=== PATIENT | female | born 1965 | race Caucasian/White ===

== ENCOUNTER → 2019-11-27 13:26 | Outpatient (BNVA) | payer BC, SELFPAY | PROVIDERS: Family Provider Family Medicine; PCP Family Medicine; Visit Provider Nurse Practitioner | DX: M47.22 Other spondylosis with radiculopathy, cervical region (principal); M25.511 Pain in right shoulder; M17.0 Bilateral primary osteoarthritis of knee; M25.551 Pain in right hip; M25.552 Pain in left hip; M54.5 Low back pain; Z79.891 Long term (current) use of opiate analgesic | CPT/HCPCS: 99213; 99214 ==

== ENCOUNTER → 2020-04-01 14:08 | Outpatient (BNVA) | payer BC, SELFPAY | PROVIDERS: Family Provider Family Medicine; PCP Family Medicine; Visit Provider Anesthesiology | DX: G89.29 Other chronic pain (principal); M47.22 Other spondylosis with radiculopathy, cervical region; M54.5 Low back pain; M89.8X1 Other specified disorders of bone, shoulder; M17.0 Bilateral primary osteoarthritis of knee; Z79.891 Long term (current) use of opiate analgesic | CPT/HCPCS: 99214 ==

== ENCOUNTER → 2020-05-09 13:17 | Outpatient (BNVA) | payer BC, SELFPAY | PROVIDERS: Family Provider Family Medicine; PCP Family Medicine; Visit Provider Specialist | DX: M16.11 Unilateral primary osteoarthritis, right hip (principal) | CPT/HCPCS: 73502 ==

== ENCOUNTER 2020-05-17 15:02 | Outpatient (CLI) | payer BC, SELFPAY ==
--- NOTE | 2020-05-17 15:07 | MR_ITS ---
WS: [id number] MRI RIGHT hip without contrast. COMPARISON: RIGHT hip pain. No trauma. COMPARISON: Radiographs 05/09/2020. Multiplanar, multisequence imaging is performed of the pelvis and hips. Attention to the RIGHT hip. No marrow edema or fracture. No significant joint effusion. There is slightly more fluid in the RIGHT hip joint than the LEFT. No trochanteric bursitis. There is increased T2 signal in the lateral RIGHT obturator externa small muscle. Abnormal signal measures 3.5 x 1.3 cm and extends just inferior to t he femoral head. No muscle atrophy at this time. No definite labral tears are identified on this exam. There is no free fluid in the pelvis. Soft tiss ues are symmetric bilaterally. MR/MR hip RT wo con* [id number] IMPRESSION: 1. Partially torn RIGHT obturator internus externus muscle. 2. Small and probably reactive RIGHT hip joint effusion.
== END 2020-05-17 15:03 | disposition home or self-care (01) ==
LOC: RADWPI 15:05
PROVIDERS: Family Provider Family Medicine; PCP Family Medicine; Visit Provider Specialist
DX: S76.011A Strain of muscle, fascia and tendon of right hip, initial encounter (principal); M25.451 Effusion, right hip; X58.XXXA Exposure to other specified factors, initial encounter
CPT/HCPCS: 73721

== ENCOUNTER → 2020-06-03 11:41 | Outpatient (BNVA) | payer BC, SELFPAY | PROVIDERS: Family Provider Family Medicine; PCP Family Medicine; Visit Provider Anesthesiology | DX: G89.29 Other chronic pain (principal); M47.22 Other spondylosis with radiculopathy, cervical region; M89.8X1 Other specified disorders of bone, shoulder; M54.5 Low back pain; S76.011A Strain of muscle, fascia and tendon of right hip, initial encounter; M17.0 Bilateral primary osteoarthritis of knee; X58.XXXA Exposure to other specified factors, initial encounter; Z79.891 Long term (current) use of opiate analgesic | CPT/HCPCS: 99214 ==

== ENCOUNTER → 2020-06-08 13:25 | Outpatient (BNVA) | payer BC, SELFPAY | PROVIDERS: Family Provider Family Medicine; PCP Family Medicine; Referring Provider Specialist; Visit Provider Podiatrist Foot & Ankle Surgery | DX: M79.672 Pain in left foot (principal); M79.671 Pain in right foot; M20.12 Hallux valgus (acquired), left foot; M20.11 Hallux valgus (acquired), right foot; M21.612 Bunion of left foot; M21.611 Bunion of right foot; M13.872 Other specified arthritis, left ankle and foot; M13.871 Other specified arthritis, right ankle and foot | CPT/HCPCS: 73630 ==

== ENCOUNTER → 2020-07-04 14:55 | Outpatient (BNVA) | payer BC, SELFPAY | PROVIDERS: Family Provider Family Medicine; PCP Family Medicine; Visit Provider Specialist | DX: S76.011A Strain of muscle, fascia and tendon of right hip, initial encounter (principal); M79.671 Pain in right foot; M79.672 Pain in left foot; Z96.653 Presence of artificial knee joint, bilateral; M21.612 Bunion of left foot; M21.611 Bunion of right foot; M19.072 Primary osteoarthritis, left ankle and foot; M19.071 Primary osteoarthritis, right ankle and foot; M20.12 Hallux valgus (acquired), left foot; M20.11 Hallux valgus (acquired), right foot; X58.XXXA Exposure to other specified factors, initial encounter | CPT/HCPCS: 73560; 73565 ==

== ENCOUNTER → 2020-08-04 12:26 | Outpatient (BNVA) | payer BC, SELFPAY | PROVIDERS: Family Provider Family Medicine; PCP Family Medicine; Visit Provider Anesthesiology | DX: G89.29 Other chronic pain (principal); M47.22 Other spondylosis with radiculopathy, cervical region; M89.8X1 Other specified disorders of bone, shoulder; M54.5 Low back pain; M17.0 Bilateral primary osteoarthritis of knee; Z79.891 Long term (current) use of opiate analgesic | CPT/HCPCS: 99214 ==

== ENCOUNTER → 2020-08-10 15:44 | Outpatient (BNVA) | payer BC, SELFPAY | PROVIDERS: Family Provider Family Medicine; PCP Family Medicine; Referring Provider Nurse Practitioner; Visit Provider Specialist | DX: S49.92XA Unspecified injury of left shoulder and upper arm, initial encounter (principal); X58.XXXA Exposure to other specified factors, initial encounter | CPT/HCPCS: 73030 ==

== ENCOUNTER → 2020-09-27 13:18 | Outpatient (BNVA) | payer BC, SELFPAY | PROVIDERS: Family Provider Family Medicine; PCP Family Medicine; Visit Provider Anesthesiology | DX: M54.2 Cervicalgia (principal); M17.0 Bilateral primary osteoarthritis of knee; M47.22 Other spondylosis with radiculopathy, cervical region; Z79.891 Long term (current) use of opiate analgesic; M89.8X1 Other specified disorders of bone, shoulder; G89.29 Other chronic pain | CPT/HCPCS: 99214 ==

== ENCOUNTER → 2020-11-29 13:29 | Outpatient (BNVA) | payer BC, SELFPAY | PROVIDERS: Family Provider Family Medicine; PCP Family Medicine; Visit Provider Anesthesiology | DX: G89.29 Other chronic pain (principal); M25.511 Pain in right shoulder; M47.22 Other spondylosis with radiculopathy, cervical region; M54.5 Low back pain; M17.0 Bilateral primary osteoarthritis of knee; Z79.891 Long term (current) use of opiate analgesic | CPT/HCPCS: 99214 ==

== ENCOUNTER → 2021-01-24 13:51 | Outpatient (BNVA) | payer BC, SELFPAY | PROVIDERS: Family Provider Family Medicine; PCP Family Medicine; Visit Provider Nurse Practitioner | DX: G89.29 Other chronic pain (principal); M25.511 Pain in right shoulder; M89.8X1 Other specified disorders of bone, shoulder; M47.22 Other spondylosis with radiculopathy, cervical region; M54.5 Low back pain; M17.0 Bilateral primary osteoarthritis of knee; S76.011A Strain of muscle, fascia and tendon of right hip, initial encounter; X58.XXXA Exposure to other specified factors, initial encounter; Z79.891 Long term (current) use of opiate analgesic | CPT/HCPCS: 99213; 99214 ==

== ENCOUNTER → 2021-03-21 13:30 | Outpatient (BNVA) | payer BC, SELFPAY | PROVIDERS: Family Provider Family Medicine; PCP Family Medicine; Visit Provider Anesthesiology | DX: G89.29 Other chronic pain (principal); M47.22 Other spondylosis with radiculopathy, cervical region; M89.8X1 Other specified disorders of bone, shoulder; M54.5 Low back pain; M17.0 Bilateral primary osteoarthritis of knee; Z79.891 Long term (current) use of opiate analgesic | CPT/HCPCS: 99213 ==

== ENCOUNTER → 2021-05-23 12:41 | Outpatient (BNVA) | payer BC, SELFPAY | PROVIDERS: Family Provider Family Medicine; PCP Family Medicine; Visit Provider Anesthesiology | DX: G89.29 Other chronic pain (principal); M47.22 Other spondylosis with radiculopathy, cervical region; M17.0 Bilateral primary osteoarthritis of knee; M54.5 Low back pain; M89.8X1 Other specified disorders of bone, shoulder; Z79.891 Long term (current) use of opiate analgesic | CPT/HCPCS: 99214 ==

== ENCOUNTER 2021-06-15 20:00 | Outpatient (CLI) | payer BC, SELFPAY | END 2021-06-15 20:01 | disposition home or self-care (01) | LOC: SLEEP 06-16 08:21 | PROVIDERS: Family Provider Family Medicine; PCP Family Medicine; Visit Provider Family Medicine | DX: G47.10 Hypersomnia, unspecified (principal); R06.83 Snoring; R53.83 Other fatigue; G47.33 Obstructive sleep apnea (adult) (pediatric) | CPT/HCPCS: 95810 ==

== ENCOUNTER → 2021-06-23 13:16 | Outpatient (BNVA) | payer BC, SELFPAY | PROVIDERS: Family Provider Family Medicine; PCP Family Medicine; Visit Provider Surgery | DX: Z20.822 Contact with and (suspected) exposure to COVID-19 (principal); Z23 Encounter for immunization | CPT/HCPCS: 87635 ==

== ENCOUNTER 2021-06-28 06:01 | Day surgery (SDC) | payer BC, SELFPAY ==
[2021-06-21 12:45] VITALS: BMI 33.2
[2021-06-28 06:17] VITALS: BP 126/76; PULSE 97; RESP 18; TEMP 36.4; O2SAT 94
--- NOTE | 2021-06-28 06:25 | W.PM.OPSFHP ---
Same Day Surgery H&P Indication for Procedure/HPI DATE OF PROCEDURE: June 28, 2021 CHIEF COMPLAINT/INDICATIONFOR SURGICAL PROCEDURE: Abnormal discharge PREOP DIAGNOSIS: Rectal discharge and history of colon polyp PLANNED PROCEDRUE: Operation Date: 06/28/21 07:00 Proposed Procedures p Colonoscopy 43971 z86.010(Not Applicable) - Rylan Olson MD This is a pleasant 55 years old female patient referred to my practice with history of abnormal rectal discharge being mucousy and nonbloody. She reports last colonoscopy was done 5 years ago and polyps were found. He also reports family history of colon cancer per her father in his 70s. Interim history 06/28/2021 Patient comes today for diagnostic colonoscopy ROS All systems have been reviewed negative except as per the above or per problem LIST Medications/Allergies* Home Medications Medication Instructions Recorded Confirmed Type fexofenadine 180 mg tablet 180 mg PO DAILY PRN 11/26/19 06/28/21 History furosemide 40 mg tablet 40 mg PO .QD PRN tab 11/26/19 06/28/21 History potassium chloride 10 mEq 10 meq PO DAILY 11/26/19 06/28/21 History tablet,extended release promethazine 25 mg tablet 25 mg PO .QD PRN tab 11/26/19 06/28/21 History fluoxetine [Prozac] 25 mg PO DAILY 06/21/21 06/28/21 History Allergies/Adverse Reactions Allergy/AdvReac Type Severity Reaction Status Date / Time baclofen AdvReac nausea/twitch Verified 06/28/21 06:29 in hands Pertinent History/Comorbid Conditions* Medical History (Updated 05/11/21 @ 14:36 by Rylan Olson MD) Bilateral primary osteoarthritis of knee Cervical radiculopathy due to degenerative joint disease of spine Chronic pain of scapula Encounter for long-term opiate analgesic use Opioid contract exists Surgical History (Updated 11/27/19 @ 14:23 by GRACIA Swenson) History of left knee replacement History of total right knee replacement 04/07/19 w/Dr Mcclendon Hx of carpal tunnel repair Right 11/2008 Hx of dilation and curettage 1988 Hx of hysterectomy Hx of shoulder surgery right side with Dr. Mcclendon 11/22/17 Social History Smoking and tobacco status: never smoked Second hand smoke exposure: No Alcohol intake: never Lives independently: Yes History of recent travel: No Pertinent Exam Findings alert (Patient seems to be anxious), oriented x 3, clear to auscultation bilaterally, regular rate & rhythm and procedure specific exam findings (Abdominal examination nontender nondistended soft) Recommendations Surgery/Procedure today (Colonoscopy with possible biopsy) Other Plans: Plan of care; After thorough history and physical examination and reviewing the chart, plan to perform diagnostic colonoscopy. I discussed with the patient in details the risks,benefits,alternatives and indications.The risk of aspiration, bleeding, soft tissue injury, perforation of the colon and other potential concomitant complications were explained to the patient in details,also the potential need for Laproscoy/Laparotomy to repair any related complications including but not limited to colectomy and or Closotomy.The patient understood this well and did agree to proceed. Rationale was carefully and clearly discussed with the patient.Appropriate informed consent have been reviewed and signed All questions have been answered and all concerns have been addressed to patient's satisfaction. Verbal and written Instructions were given to the patient for colonoscopy prep Coding Level of Care Code Acute Chemical Research Worker for Ahsan Mendenhall
--- NOTE | 2021-06-28 06:54 | ANES.PREANE2 ---
Pre-Anesthetic Assessment Pre-Anesthetic Assessment: Height/Weight: Height 1.83 m Weight 111.13 kg Temp Pulse Resp BP Pulse Ox 97.6 F 97 18 126/76 94 06/28/21 06:17 06/28/21 06:17 06/28/21 06:17 06/28/21 06:17 06/28/21 06:17 Preop Diagnosis: Rectal discharge and history of colon polyp Proposed Procedure: Operation Date: 06/28/21 07:00 Proposed Procedures p Colonoscopy 74438 z86.010(Not Applicable) - Rylan Olson MD Was Beta Cristo taken within 24 hours: N/A Was Clonidine taken within 24 hours: N/A Last intake: Intake Last Liquid Date 06/27/21 Last Liquid Time 19:00 Last Solid Date 06/27/21 Last Solid Time 17:00 Social: Social History: No alcohol and No tobacco Comment: Opiod depenence Exam: Pre-Anes Outpt Exam: alert, oriented x 3, clear to auscultation bilaterally and regular rate & rhythm Airway: Submandibular: WNL Cervical ROM: WNL MP: 2 Dentition: Full History/ROS: No significant history except as noted and No significant complaints Pulmonary: Pulmonary: None reported CV/HEM: CV/HEM: None reported : : None reported Hepatic: Hepatic: None reported GI: GI: None reported Metabolic: Metabolic: None reported Musc/skel: Musc/skel: Fibromyalgia, Lower Back Pain and OA/DJD Neuropsych: Neuropsych: Anxiety Anesthetic Plan: ASA status: 2 Anesthesia: MAC Risk of > 500 ml blood loss (7ml/kg in children): No PFSH Anesthesia PFSH: Medical History Bilateral primary osteoarthritis of knee Cervical radiculopathy due to degenerative joint disease of spine Chronic pain of scapula Encounter for long-term opiate analgesic use Opioid contract exists Surgical History History of left knee replacement History of total right knee replacement 04/07/19 w/Dr Mcclendon Hx of carpal tunnel repair Right 11/2008 Hx of dilation and curettage 1988 Hx of hysterectomy Hx of shoulder surgery right side with Dr. Mcclendon 11/22/17 Social History (Updated 05/23/21 @ 13:00 by Juju Merino LPN) Smoking and tobacco status: never smoked Second hand smoke exposure: No Alcohol intake: never Lives independently: Yes History of recent travel: No Data Anesthesia Cardiac Studies: No Data to Display
[2021-06-28] MEDS: sodium chloride 0.9% 1,000 ML 30 ML IV (07:04)
[2021-06-28 07:24] VITALS: BP 128/76; PULSE 81; RESP 16; TEMP 36.7; O2SAT 99
[2021-06-28 07:27] VITALS: BP 133/73; PULSE 75; RESP 18; O2SAT 97
--- NOTE | 2021-06-28 13:54 | ANE.PACU2 ---
Inpatient post-anesthesia follow up: Airway intact: Yes Vital signs: Temperature 98.1 F Pulse Rate 75 Respiratory Rate 18 Blood Pressure 133/73 Pulse Oximetry 97 Oxygen Delivery Me thod Room Air Oxygen Flow Rate 3 Fraction of Inspir ed Oxygen Nausea and vomiting: No Pain level: 1 Mental status: Baseline
== END 2021-06-28 07:40 | disposition home or self-care (01) ==
PROVIDERS: PCP Family Medicine; Visit Provider Surgery
PROC: 0DJD8ZZ Inspection of Lower Intestinal Tract, Via Natural or Artificial Opening Endoscopic (ICD-10-PCS; CPT 45378; principal; 2021-06-28 07:00)
DX: K62.89 Other specified diseases of anus and rectum (principal); Z86.010 Personal history of colon polyps; M17.0 Bilateral primary osteoarthritis of knee; Z79.891 Long term (current) use of opiate analgesic; G89.29 Other chronic pain; M79.7 Fibromyalgia; F41.9 Anxiety disorder, unspecified
CPT/HCPCS: 45330; J2704; J7030

== ENCOUNTER → 2021-07-20 09:14 | Outpatient (BNVA) | payer BC, SELFPAY | PROVIDERS: PCP Family Medicine; Referring Provider Anesthesiology; Visit Provider Specialist | DX: G47.419 Narcolepsy without cataplexy (principal); M89.8X1 Other specified disorders of bone, shoulder; G89.29 Other chronic pain; M40.204 Unspecified kyphosis, thoracic region; V89.2XXS Person injured in unspecified motor-vehicle accident, traffic, sequela; G62.9 Polyneuropathy, unspecified | CPT/HCPCS: 99204 ==

== ENCOUNTER 2021-07-24 09:46 | Outpatient (CLI) | payer OTHER, SELFPAY ==
--- NOTE | 2021-07-24 09:53 | XR_ITS ---
WS: [id number] XR lumbar spine 2-3V* [id number] REASON FOR EXAM: BACK PAIN FINDINGS: No significant compression deformity or other focal vertebral body abnormality. Narrowing of the intervertebral disc spaces L1-S1, most significant at L4-L5 and L5-S1. No significant listhesis There is been moderate to significant narrowing of the disc spaces compared to the previous examinati on of 02/11/2008. XR/XR lumbar spine 2-3V* [id number] IMPRESSION: Changes of degenerative spondylosis which have developed since the previous exa mination of 02/11/2008.
== END 2021-07-24 09:47 | disposition home or self-care (01) ==
LOC: RAD 09:50
PROVIDERS: PCP Family Medicine; Visit Provider Dermatology
DX: Z02.71 Encounter for disability determination (principal); M54.9 Dorsalgia, unspecified
CPT/HCPCS: 72100

== ENCOUNTER → 2021-07-25 11:12 | Outpatient (BNVA) | payer BC, SELFPAY | PROVIDERS: PCP Family Medicine; Visit Provider Nurse Practitioner | DX: G89.29 Other chronic pain (principal); M54.50 Low back pain, unspecified; M47.22 Other spondylosis with radiculopathy, cervical region; M17.0 Bilateral primary osteoarthritis of knee; M89.8X1 Other specified disorders of bone, shoulder; G62.9 Polyneuropathy, unspecified; Z79.891 Long term (current) use of opiate analgesic | CPT/HCPCS: 99213 ==

== ENCOUNTER → 2021-07-27 08:50 | Outpatient (BNVA) | payer BC, SELFPAY | PROVIDERS: PCP Family Medicine; Referring Provider Specialist; Visit Provider Specialist | DX: G62.89 Other specified polyneuropathies (principal) | CPT/HCPCS: 95909 ==

== ENCOUNTER → 2021-08-21 08:16 | Outpatient (BNVA) | payer BC, SELFPAY | PROVIDERS: PCP Family Medicine; Referring Provider Family Medicine Adult Medicine; Visit Provider Specialist | DX: M25.551 Pain in right hip (principal) | CPT/HCPCS: 73502 ==

== ENCOUNTER 2021-08-31 10:19 | Outpatient (CLI) | payer BC, SELFPAY ==
[2021-08-31 11:12] LABS: C Reactive Protein 2.3 mg/L (0.0-4.9); Thyroid Stimulating Hormone 1.35 uIU/mL (0.27-4.20)
[2021-08-31 11:27] LABS: Folate Level 7.5 ng/mL (4.8-37.3)
[2021-08-31 11:47] LABS: Vitamin B12 528 pg/mL (232-1245)
[2021-09-01 15:39] LABS: Erythrocyte Sedimentation Rate 17 mm/hr (0-15)
[2021-09-05 18:58] LABS: Methylmalonic Acid 161 nmol/L (87-318)
== END 2021-08-31 10:20 | disposition home or self-care (01) ==
LOC: LAB 10:21
PROVIDERS: PCP Family Medicine; Visit Provider Specialist
DX: R20.0 Anesthesia of skin (principal); R20.2 Paresthesia of skin
CPT/HCPCS: 36415; 82607; 82746; 83921; 84443; 85651; 86140; 86334; 86431

== ENCOUNTER → 2021-09-21 14:12 | Outpatient (BNVA) | payer BC, SELFPAY | PROVIDERS: PCP Family Medicine; Visit Provider Anesthesiology | DX: G89.29 Other chronic pain (principal); M54.50 Low back pain, unspecified; M47.22 Other spondylosis with radiculopathy, cervical region; M17.0 Bilateral primary osteoarthritis of knee; M16.11 Unilateral primary osteoarthritis, right hip; M89.8X1 Other specified disorders of bone, shoulder; Z79.891 Long term (current) use of opiate analgesic | CPT/HCPCS: 99214 ==

== ENCOUNTER 2022-04-26 07:28 | Outpatient (CLI) | payer BC, SELFPAY ==
--- NOTE | 2022-04-26 07:49 | MM_ITS ---
WS: [id number] BILATERAL SCREENING DIGITAL BREAST TOMOSYNTHESIS MAMMOGRAM WITH CAD HISTORY: SCREENING COMPARISON: None available. Bilateral CC and MLO views with tomosynthesis and synthetic mammography submitted. Computer aided det ection analyzed. Breast composition: There are scattered areas of fibroglandular density. No suspicious masses, microc alcifications or architectural distortion. MM/[place] [id number] IMPRESSION: BI-RADS: 1-Negative FOLLOW UP: 1 Year Follow-up
== END 2022-04-26 07:29 | disposition home or self-care (01) ==
PROVIDERS: PCP Family Medicine; Visit Provider Family Medicine
DX: Z12.31 Encounter for screening mammogram for malignant neoplasm of breast (principal)
CPT/HCPCS: 77063; 77067

== ENCOUNTER → 2022-05-23 17:07 | Outpatient (BNVA) | payer BC, SELFPAY | PROVIDERS: PCP Family Medicine; Visit Provider Emergency Medicine | DX: M25.572 Pain in left ankle and joints of left foot (principal) | CPT/HCPCS: 73610 ==

== ENCOUNTER 2022-08-30 06:01 | Day surgery (SDC) | payer BC, SELFPAY ==
[2022-08-28 12:35] VITALS: BMI 33.9
[2022-08-30 06:21] VITALS: BP 128/82; PULSE 86; RESP 20; TEMP 36.1; O2SAT 94
[2022-08-30] MEDS: sodium chloride 0.9% 1,000 ML 30 ML IV (06:28)
--- NOTE | 2022-08-30 06:31 | W.PM.OPSFHP ---
Same Day Surgery H&P Indication for Procedure/HPI DATE OF PROCEDURE: August 30, 2022 CHIEF COMPLAINT/INDICATIONFOR SURGICAL PROCEDURE: I am here for colonoscopy PREOP DIAGNOSIS: History of colon polyps PLANNED PROCEDURE: Operation Date: 08/30/22 07:30 Proposed Procedures p Colonoscopy 42993,Z86.010,Z80.0(Not Applicable) - Rylan Olson MD 06/27/2022 This is a pleasant 56 years old female patient presents to my practice today with history of colon polyps and an attempt of colonoscopy was done back in June 2021 but unfortunately the patient's prep was suboptimal and subsequently she comes today for arrangement to have a colonoscopy, she does report that she has family history of colon cancer with her father had a colon cancer around the age of 70 and he at age of 72. Patient denies any bleeding per rectum and she reports that she had precancerous polyps removed before few years. 08/30/2022 Patient comes today for surveillance colonoscopy ROS All systems have been reviewed negative except as for the above or per problem list. Medications/Allergies* Home Medications Medication Instructions Recorded Confirmed Type fexofenadine 180 mg tablet 180 mg PO DAILY PRN Allergy 11/26/19 08/28/22 History (Rosenda Allergy) Symptoms furosemide 40 mg tablet (Lasix) 40 mg PO .QD PRN Blood Pressure 11/26/19 08/28/22 History promethazine 25 mg tablet 25 mg PO .QD PRN Nausea 11/26/19 08/28/22 History fluoxetine 20 mg capsule (Prozac) 20 mg PO DAILY 07/25/21 08/28/22 History oxycodone 20 mg tablet 20 mg PO TID PRN pain 01/04/22 08/28/22 History potassium chloride 10 mEq 10 meq PO DAILY PRN Weight Gain 01/04/22 08/28/22 History tablet,extended release Allergies/Adverse Reactions Allergy/AdvReac Type Severity Reaction Status Date / Time baclofen AdvReac nausea/twitch Verified 08/30/22 06:31 in hands Current Medications: Generic Name Dose Route Start Last Admin Trade Name Freq PRN Reason Stop Dose Admin Sodium Chloride 1,000 mls @ 30 mls/hr 08/30/22 06:15 08/30/22 06:28 Sodium Chloride 0.9% IV 08/31/22 06:14 30 mls/hr .Q24H FRANCIS Administration Pertinent History/Comorbid Conditions* Medical History (Updated 06/27/22 @ 08:04 by Rylan Olson MD) Acute right hip pain Bilateral primary osteoarthritis of knee Cervical radiculopathy due to degenerative joint disease of spine Chronic pain of scapula Encounter for long-term opiate analgesic use Opioid contract exists Surgical History (Updated 08/08/21 @ 09:36 by Caleb Beavers MD) History of colonoscopy with polypectomy History of left knee replacement History of total right knee replacement 04/07/19 w/Dr Mcclendon Hx of carpal tunnel repair Right 11/2008 Hx of dilation and curettage 1988 Hx of hysterectomy Hx of shoulder surgery right side with Dr. Mcclendon 11/22/17 Social History Smoking and tobacco status: never smoked Second hand smoke exposure: No Alcohol intake: never Lives independently: Yes History of recent travel: No Pertinent Exam Findings alert, oriented x 3, clear to auscultation bilaterally, regular rate & rhythm and procedure specific exam findings (Abdominal exam nontender nondistended soft) Recommendations Surgery/Procedure today (Colonoscopy with possible biopsy) Coding Level of Care Code Acute Building And Construction Manager for Ahsan Mendenhall
--- NOTE | 2022-08-30 06:35 | P.ANESASSM_ITS ---
Pre-Anesthetic Assessment Height/Weight: Height 1.83 m Weight 113.398 kg Temp Pulse Resp BP Pulse Ox O2 Del Method 97 F L 86 20 H 128/82 94 08/30/22 06:21 08/30/22 06:21 08/30/22 06:21 08/30/22 06:21 08/30/22 06:21 08/30/22 06:21 Preop Diagnosis: History of colon polyps Operation Date: 08/30/22 07:30 Proposed Procedures p Colonoscopy 19401,Z86.010,Z80.0(Not Applicable) - Rylan Olson MD Familial anesthetic complications: None Was Beta Cristo taken within 24 hours: N/A Was Clonidine taken within 24 hours: N/A Last intake: Intake Last Liquid Date 08/29/22 Last Liquid Time 21:00 Last Solid Date 08/28/22 Last Solid Time 22:00 Social No alcohol and No tobacco Exam alert, oriented x 3, clear to auscultation bilaterally and regular rate & rhythm Airway Submandibular: within normal limits Cervical ROM: within normal limits Mallampati: Class II Dentition: chipped (Back right) History/ROS No significant history except as noted and No significant complaints Pulmonary Sleep Apnea (Mild, no CPAP) Allergies CV/HEM Hypertension Kidney labs showed low kidney function. Will discuss labs today with PCP Hepatic None reported GI None reported Metabolic Hyperlipidemia [facility] [place] Fibromyalgia, Lower Back Pain and Osteoarthritis/DJD Neuropsych Neuropathy RLS Anesthetic Plan ASA status: 2 Anesthesia: Anesthesia Evaluation, General and MAC Risk of > 500 ml blood loss (7ml/kg in children): No Medications/Allergies Home Medications Medication Instructions Recorded Confirmed Last Taken Type fexofenadine 180 mg tablet 180 mg PO DAILY PRN Allergy 11/26/19 08/28/22 08/29/22 History (Rosenda Allergy) Symptoms furosemide 40 mg tablet (Lasix) 40 mg PO .QD PRN Blood Pressure 11/26/19 08/28/22 08/29/22 History promethazine 25 mg tablet 25 mg PO .QD PRN Nausea 11/26/19 08/28/22 08/29/22 History fluoxetine 20 mg capsule (Prozac) 20 mg PO DAILY 07/25/21 08/28/22 08/29/22 History meloxicam 15 mg tablet 15 mg PO DAILY #30 tabs 08/21/21 08/28/2222 Rx cyclobenzaprine 10 mg tablet 10 mg PO QID muscle spasm #120 tabs 11/21/21 08/28/22 08/30/22 05:30 Rx oxycodone 20 mg tablet 20 mg PO TID PRN pain 01/04/22 08/28/22 08/30/22 05:30 History potassium chloride 10 mEq 10 meq PO DAILY PRN Weight Gain 01/04/22 08/28/22 08/29/22 History tablet,extended release Allergies Allergy/AdvReac Type Severity Reaction Status Date / Time baclofen AdvReac nausea/twitch Verified 08/30/22 06:31 in hands Current Medications Generic Name Dose Route Start Last Admin Trade Name Freq PRN Reason Stop Dose Admin Sodium Chloride 1,000 mls @ 30 mls/hr 08/30/22 06:15 08/30/22 06:28 Sodium Chloride 0.9% IV 08/31/22 06:14 30 mls/hr .Q24H FRANCIS Administration PFSH Anesthesia Medical History Acute right hip pain Bilateral primary osteoarthritis of knee Cervical radiculopathy due to degenerative joint disease of spine Chronic pain of scapula Encounter for long-term opiate analgesic use Opioid contract exists Surgical History History of colonoscopy with polypectomy History of left knee replacement History of total right knee replacement 04/07/19 w/Dr Mcclendon Hx of carpal tunnel repair Right 11/2008 Hx of dilation and curettage 1988 Hx of hysterectomy Hx of shoulder surgery right side with Dr. Mcclendon 11/22/17 Social History Smoking and tobacco status: never smoked Second hand smoke exposure: No Alcohol intake: never Lives independently: Yes History of recent travel: No Data Anesthesia Cardiac Studies: No Data to Display
[2022-08-30 07:39] VITALS: BP 114/63; PULSE 92; RESP 14; TEMP 36.4; O2SAT 96
[2022-08-30 07:49] VITALS: BP 143/85; PULSE 76; RESP 18; O2SAT 97
--- NOTE | 2022-08-30 15:17 | ANE.PACU2 ---
Inpatient post-anesthesia follow up: Airway intact: Yes Vital signs: Temperature 97.5 F Pulse Rate 76 Respiratory Rate 18 Blood Pressure 143/85 Pulse Oximetry 97 Oxygen Delivery Me thod Nasal Cannula Oxygen Flow Rate 4 Fraction of Inspir ed Oxygen Hydration adequate: Yes Nausea and vomiting: No Pain level: 1 Mental status: Baseline
== END 2022-08-30 08:23 | disposition home or self-care (01) ==
PROVIDERS: PCP Family Medicine; Visit Provider Surgery
PROC: 0DJD8ZZ Inspection of Lower Intestinal Tract, Via Natural or Artificial Opening Endoscopic (ICD-10-PCS; CPT 45378; principal; 2022-08-30 07:30)
DX: Z12.11 Encounter for screening for malignant neoplasm of colon (principal); Z86.010 Personal history of colon polyps; Z80.0 Family history of malignant neoplasm of digestive organs; D12.3 Benign neoplasm of transverse colon; G47.30 Sleep apnea, unspecified; I10 Essential (primary) hypertension; E78.5 Hyperlipidemia, unspecified; M79.7 Fibromyalgia; Z79.891 Long term (current) use of opiate analgesic
CPT/HCPCS: 45385; J2704; J7030

== ENCOUNTER 2023-05-11 13:36 | Outpatient (CLI) | payer OTHER, SELFPAY ==
--- NOTE | 2023-05-11 14:25 | XRR_ITS ---
PROCEDURE INFORMATION: Exam: XR Right Foot Exam date and time: 05/11/2023 2:27 PM Age: 57 years old Clinical indication: Pain; Foot; Right; Additional info: Foot injury TECHNIQUE: Imaging protocol: Radiologic exam of the right foot. Views: 3 or more views. COMPARISON: [place] [id number] ORTH 06/08/2020 1:30 PM FINDINGS: Bones/joints: Incomplete thin oblique linear lucency at the lateral proximal 5th metatarsal shaft cortex on the oblique view. Hallux valgus alignment with osseous hypertrophy of the 1st metatarsal head and mild degenerative changes at the 1st MTP joint and 1st metatarsal-sesamoid. Joint spacing and alignment are otherwise anatomic. Small plantar calcaneal enthesophyte. Soft tissues: Unremarkable. XR/XR foot RT min 3V* [id number] IMPRESSION: 1. Evidence of right proximal 5th metatarsal stress fracture. 2. Hallux valgus alignment with bunion formation and mild associated degenerative changes.
== END 2023-05-11 13:37 | disposition home or self-care (01) ==
LOC: LAB 13:37
PROVIDERS: PCP Family Medicine; Visit Provider Registered Nurse Neonatal Intensive Care
DX: M84.374A Stress fracture, right foot, initial encounter for fracture (principal); M20.11 Hallux valgus (acquired), right foot; M21.611 Bunion of right foot
CPT/HCPCS: 73630

== ENCOUNTER 2023-05-14 14:38 | Outpatient (CLI) | payer OTHER, SELFPAY | END 2023-05-14 14:39 | disposition home or self-care (01) | LOC: SPT 14:39 | PROVIDERS: PCP Family Medicine; Visit Provider Podiatrist Foot & Ankle Surgery | DX: Z46.89 Encounter for fitting and adjustment of other specified devices (principal); S92.353D Displaced fracture of fifth metatarsal bone, unspecified foot, subsequent encounter for fracture with routine healing; X58.XXXD Exposure to other specified factors, subsequent encounter | CPT/HCPCS: 97760; L4361 ==

== ENCOUNTER 2023-05-18 17:58 | Emergency (ER) | payer OTHER, SELFPAY ==
--- NOTE | 2023-05-18 18:23 | XRR_ITS ---
PROCEDURE INFORMATION: Exam: XR Right Foot Exam date and time: 05/18/2023 6:41 PM Age: 57 years old Clinical indication: Pain; Foot; Left TECHNIQUE: Imaging protocol: Radiologic exam of the right foot. Views: 3 or more views. COMPARISON: CR XR foot RT min 3V* [id number] 05/11/2023 2:27 PM FINDINGS: Bones/joints: There is a hairline fracture through the proximal shaft of the 5th metatarsal that is more apparent on the current study but otherwise unchanged. No malalignment or displacement. Moderate degenerative changes 1st MTP in joint with accompanying hallux-valgus deformity unchanged. Incidental accessory ossicles adjacent to the distal metatarsal heads unchanged. Soft tissues: Normal. XR/XR foot RT min 3V* [id number] IMPRESSION: Acute nondisplaced hairline fracture proximal shaft 5th metatarsal that is slightly more apparent on the current study.
[2023-05-18 18:37] VITALS: BP 161/88; PULSE 84; RESP 16; TEMP 36.7; O2SAT 99
--- NOTE | 2023-05-18 20:43 | W.ED.EXTPRO ---
HPI - Extremity Problem General: Chief complaint: Extremity Injury, Lower Stated complaint: right foot pain Time Seen by Provider: 05/18/23 20:03 History of Present Illness: Patient is a 57-year-old female that presents to the emergency department with complaints of right foot pain. Patient originally injured her foot approximately 1 month ago but did not follow-up for evaluation until about a week ago. She was seen and diagnosed with a 5th metatarsal fracture while at urgent care. She followed up with orthopedic surgeon?Dr. Goins on Saturday. She was placed in a walking boot. [place] when she felt a sudden change in her foot and intense pain. She has been unable to ambulate since. Patient was not wearing her walking boot when this occurred Associated symptoms: Deny chest pain, fever(s) or rash Review of Systems General: Reports: 10 or more systems reviewed and unremarkable except in HPI and below Const: Denies: fever(s), chills, change in appetite, change in weight, fatigue or malaise Eyes: Denies: change in vision, eye discomfort, eye discharge or eye redness ENMT: Denies: throat pain, enlarged tonsils, odynophagia, hoarseness, ear or mastoid pain, ear discharge, change in hearing, tinnitus, nasal discharge, nasal congestion, post nasal drip or sinus pain Card: Denies: chest pain, palpitations, irregular heart rhythm, edema, dyspnea on exertion, orthopnea or leg pain with exertion Resp: Denies: dyspnea, productive cough, non-productive cough, wheezing, stridor or chest congestion GI: Denies: abdominal pain, nausea, vomiting, dysphagia, diarrhea, constipation, bloating, GI cramping or hematochezia : Denies: flank pain, difficulty voiding, dysuria, urinary frequency, urinary urgency, urinary hesitancy, oliguria or hematuria Musc: Denies: neck pain, back pain, extremity pain, joint pain, joint swelling, joint redness, joint warmth or muscle weakness Skin/Breast: Denies: rash, pruritus, erythema, photosensitivity or new lesions Neuro: Denies: headache(s), numbness in extremities, weakness in extremities, sensory changes, lack of coordination, difficulty walking, frequent falls, dizziness, confusion, Slurred speech present, difficulty communicating thoughts, seizure-like activity or involuntary movements Endo: Denies: polyuria, polydipsia or tired all the time Umang/Lymph: Denies: easy bruising or easy bleeding PFSH ED PFSH: Medical History Acute right hip pain Bilateral primary osteoarthritis of knee Cervical radiculopathy due to degenerative joint disease of spine Chronic pain of scapula Encounter for long-term opiate analgesic use Opioid contract exists Surgical History History of colonoscopy with polypectomy History of left knee replacement History of total right knee replacement 04/07/19 w/Dr Mcclendon Hx of carpal tunnel repair Right 11/2008 Hx of dilation and curettage 1988 Hx of hysterectomy Hx of shoulder surgery right side with Dr. Mcclendon 11/22/17 Social History Smoking and tobacco status: never smoked Second hand smoke exposure: No Alcohol intake: never Substance/Drug Use: never Lives independently: Yes Physical Exam Const: COMMON NORMALS: no acute distress, patient oriented x3 and alert GENERAL APPEARANCE: cooperative ORIENTATION/CONSCIOUSNESS: Yes awake, Yes oriented to person, Yes oriented to place and Yes oriented to time HENMT: COMMON NORMALS: normocephalic and atraumatic HEAD & SCALP: normocephalic and atraumatic FACE & SINUS: normal facial exam MOUTH: Normal oral and palatal mucosa present THROAT: posterior oropharynx normal Eye: COMMON NORMALS: Equal, round and reactive pupils present, EOMs intact bilaterally, conjunctivae normal and no scleral icterus GENERAL EYE: appearance normal, both eyes and all related structures ALIGNMENT: Yes alignment normal PERIORBITAL: periorbital findings normal CONJUNCTIVA: Yes conjunctivae normal PUPIL: Yes Equal, round and reactive pupils present Neck/C-Spine: COMMON NORMALS: full ROM GENERAL: Yes normal visual inspection Lymph: LYMPHATIC: no lymphadenopathy noted Chest: COMMONS NORMALS: normal inspection of the chest Breast/axilla inspection: Yes no chest deformity, asymmetry, normal contours, no nodules, masses, tenderness Resp: COMMON NORMALS: normal respiratory effort, No retractions, No use of accessory muscles and clear to auscultation bilaterally EFFORT & INSPECTION: Yes able to speak in complete sentences and Yes symmetric chest movement AUSCULTATION: clear to auscultation bilaterally Cardio: COMMON NORMALS: regular rate, regular rhythm and Peripheral pulses 2+ throughout RATE: regular rate RHYTHM: regular rhythm PERIPHERAL PULSES: Peripheral pulses 2+ throughout GI: COMMON NORMALS: Normal to inspection, nondistended, normoactive bowel sounds present, Soft to palpation, non-tender and No hepatosplenomegaly present INSPECTION: Yes normal to inspection AUSCULTATION: Yes normoactive bowel sounds PALPATION: Yes Soft to palpation and Yes No hepatosplenomegaly present RECTAL EXAM: deferred Extremity: COMMON NORMALS: normal to inspection GENERAL: Yes normal exam except as noted OTHER: Right lower extremity: Skin is clean dry and intact Patient is able to flex and extend the hip and knee Patient is able to dorsiflex plantarflex the foot Patient is able to dorsiflex great toe Sensation intact to light touch at medial, lateral, dorsal, plantar surface of the foot and first webspace DP pulses palpable and cap refill less than 3 seconds Neuro: COMMON NORMALS: patient oriented x3 SENSORIUM/ORIENTATION: Yes alert, Yes oriented to person, Yes oriented to place and Yes oriented to time CRANIAL NERVES: Yes CN normal except as noted Psych: COMMON NORMALS: mental status grossly normal, Normal thought process present, cooperative, activity/motor behavior normal, denies homicidal ideation and denies suicidal ideation THOUGHT PROCESS: Normal thought process present Skin: COMMON NORMALS: no rashes or lesions noted, no wounds and turgor normal GENERAL SKIN EXAM: no rashes or lesions noted and turgor normal Course Vital Signs: Vital signs: Vital Signs Temperature 98.0 F 05/18/23 18:37 Pulse Rate 84 05/18/23 18:37 Respiratory Rate 16 05/18/23 18:37 Blood Pressure 161/88 05/18/23 18:37 Pulse Oximetry 99 05/18/23 18:37 MDM - Extremity (Nontraumatic) Medical Decision Making Patient was evaluated today for increased foot pain. I obtained an XR of the right foot which reveals a5th metatarsal fracture that remains nondisplaced but more clearly defined. I have advised the patient to continue wearing her walking boot and I am providing her with crutches and crutch training. Patient is declining any pain medication. Patient is to call her orthopedic surgeon on Saturday and update him. She may return to the emergency department for new concerning or worsening symptom Lab Data Radiology Impressions Foot X-Ray 05/18/23 18:23 IMPRESSION: Acute nondisplaced hairline fracture proximal shaft 5th metatarsal that is slightly more apparent on the current study. Discharge Plan Discharge Patient Disposition: Home Clinical Impression: Metatarsal bone fracture Condition: Stable Prescriptions: No Action meloxicam 15 mg tablet 15 mg PO DAILY Qty: 30 2RF Hold Instructions: Resume on 09/06/22. Rx Instructions: TAKE 1 TABLET BY MOUTH DAILY cyclobenzaprine 10 mg tablet 10 mg PO QID Qty: 120 1RF furosemide [Lasix] 40 mg tablet 40 mg PO .QD PRN (Reason: Blood Pressure) fexofenadine [Rosenda Allergy] 180 mg tablet 180 mg PO DAILY PRN (Reason: Allergy Symptoms) promethazine 25 mg tablet 25 mg PO .QD PRN (Reason: Nausea) potassium chloride 10 mEq tablet extended release 10 meq PO DAILY PRN (Reason: Weight Gain) Patient Comments: Only takes with lasix as needed losartan 25 mg tablet 25 mg PO DAILY oxycodone 5 mg tablet 5 mg PO QID (DME) Cam boot to the right See Rx Instructions .Route .MEDSUPPLY Qty: 1 0RF Rx Instructions: As directed Discharge Orders: Discharge ED (Routine); Ordered 05/18/23 Ordered By: Teresita Contreras Referrals: Alexandria Casanova MD [Primary Care Provider] - Discharge Diet: Advance as tolerated Discharge Activity: Resume usual activity Patient Instructions: Pain Management Activity Restrictions/Additional Instructions: Weightbearing as tolerated. Continue to wear your walking boot when out of bed Use your crutches for comfort Please return to the emergency department for new concerning or worsening symptoms. Please call Dr. Goins to update him on your worsening pain Coding Level of Care Code ED Property Custodian for Ahsan Mendenhall
== END 2023-05-18 21:10 | disposition home or self-care (01) ==
PROVIDERS: Emergency Provider Nurse Practitioner; PCP Family Medicine
DX: S92.354A Nondisplaced fracture of fifth metatarsal bone, right foot, initial encounter for closed fracture (principal); X58.XXXA Exposure to other specified factors, initial encounter; Y92.828 Other wilderness area as the place of occurrence of the external cause
CPT/HCPCS: 73630; 99283; E0114

== ENCOUNTER 2023-05-24 09:23 | Day surgery (SDC) | payer OTHER, SELFPAY ==
[2023-05-24] VITALS (7 sets, daily range): BP systolic 123–141; BP diastolic 72–82; PULSE 75–89; RESP 16–18; TEMP 36.1–36.2; O2SAT 96–99
--- NOTE | 2023-05-24 | XR_ITS ---
WS: [id number] Right foot, C-arm fluoroscopy views, 05/24/2023 Clinical Data: Right fifth metatarsal fusion Comparison: Right foot, 05/17/2023 Findings: Dr. Goins inserted a orthopedic pin to reduce the right fifth metatarsal fracture. XR/XR foot RT 2V [id number] Impression: Internal fixation of right fifth metatarsal fracture.
[2023-05-24] MEDS: CELEcoxib 200 mg Capsule 400 MG PO (09:57)
[2023-05-24] MEDS: gabapentin 300 mg Capsule PO (09:57)
[2023-05-24] MEDS: sodium chloride 0.9% 1,000 ML 30 ML IV (09:58)
[2023-05-24] MEDS: ondansetron 2 mg/ML SDV 2 mL 4 MG IVP (10:00)
[2023-05-24] MEDS: diphenhydrAMINE 50 mg/mL SDV 1mL 12.5 MG IVP (10:00)
[2023-05-24] MEDS: scopolamine 1.5 Patch 1 PATCH TRANSDERMA (10:01)
--- NOTE | 2023-05-24 13:30 | W.PM.OPSUD ---
Surgery/Procedure H&P Update DATE OF PROCEDURE: May 24, 2023 DATE H&P PERFORMED: 05/21/23 CHANGES TO PREVIOUS DOCUMENTATION: none PREOP DIAGNOSIS: Right fifth metatarsal fracture PLANNED PROCEDURE: Operation Date: 05/24/23 11:00 Proposed Procedures p ?Open reduction internal fixation right fifth metatarsal fracture 77086,S92.351A(Right) - Jose Carlos Goins DPM
[2023-05-24] MEDS: ceFAZolin 2,000 MG in sodium chloride 0.9% (plus) 50 ML 100 MG IV (13:37)
[2023-05-24] MEDS: lidocaine 2% INJ 20 mL INJECTION (14:05)
[2023-05-24] MEDS: BUPivacaine 0.5% INJ 30 mL INJECTION (14:08)
--- NOTE | 2023-05-24 14:24 | P.OP_ITS ---
Operative Report Date of procedure: May 24, 2023 Pre-op diagnosis: Preop Diagnosis Right fifth metatarsal fracture Post-op diagnosis: Right fifth metatarsal fracture Procedure done: Open reduction and internal right fifth metatarsal fracture. CPT code 89961 Implants: Glenwood Rondon precision screw 5.5 mm x 48 mm 4-0 nylon Specimens removed/disposition: None Pathology: None Surgeon: Jose Carlos Goins D.P.M. Stamping Machine Operator: Cassie Mantilla Estimated blood loss: Less than 5 13 IV fluids: 0 Urine output: None Brief History: Right Rondon fracture.? Discussed conservative versus surgical management.? Patient is strongly opinionated on proceeding with surgery.? Her main goal is to reduce the amount of potential downtime and after having discussed of the higher nonhealing rate of the Rondon fracture she wishes to proceed with ORIF.? I reviewed at length with the patient, the risks, potential complications, benefits, alternatives, expectations, and typical outcomes associated with the surgery. The risks and potential complications were explained in detail, including but not limited to infection, wound dehiscence or soft tissue complications, bleeding and hematoma, chronic edema, neuritis or nerve damage p roducing numbness or chronic pain, CRPS, failure to relieve pain or worsening pain, thick / painful / unsightly scar, limited motion / stiffness, malposition, delayed union, malunion, or nonunion, fracture, reaction to implants, anesthetic complications, venous thromboembolism, and deformity recurrence.? I discussed the notion of no regrets with the patient as it pertains to complications and outcomes. The patient seemed to understand the nature of the proposed care and required convalescence. They asked appropriate questions, answered to their satisfaction. They are aware no guarantees can be made as to a satisfactory outcome and they understand there may be other possible unforeseen complications or outcomes not listed here that will be treated accordingly if they arise. There were no written or implied guarantees given to the patient. They gave informed consent to proceed. Procedure: Under mild sedation the patient was brought to the operating room and remained on the gurney in supine position. A timeout was performed. Anesthesia was then administered by the anesthesia service. Local anesthesia injected by myself and a proximal reverse Saez block to the right foot utilizing one-to-one mixture 1% lidocaine and 0.5% Marcaine plain total of 30 cc utilized. Well-padded pneumatic tourniquet applied to the right calf. The right lower extremity was scrubbed, prepped and draped utilizing normal aseptic technique. Right foot was then exanguinated with an Esmarch bandage and the tourniquet inflated to 250 mmHg. Attention was directed to the dorsal lateral aspect of the right foot. Bony landmarks were palpated fifth metatarsal head and fifth metatarsal base. Utilizing a guidewire high and inside a nitinol guidewire was advanced down the medullary canal from proximal to distal of the right fifth metatarsal. Incision was performed with a #15 blade. Utilizing standard AO technique a Glenwood 5.5 mm diameter by 50 mm in length partially-threaded cannulated screw was inserted, threads engaged nicely and excellent compression across the fracture site was appreciated intraoperatively, screw head was well countersunk and did not violate the cuboid and fifth metatarsal articulation. The fracture reduced this was visualized on the AP, oblique and lateral view of the right foot. All 3 standard views confirmed intramedullary placement of the screw. Wire was removed and passed from the operative field. The incision was irrigated with copious amounts of sterile saline solution. Skin closed with 4-0 nylon. Dres sing consisting of Adaptic, sterile 4 x 4, Kerlix and Reji wrap was applied to the right foot. Cam boot was reapplied to the right foot. Tourniquet was then deflated and a prompt hyperemic response was noted to the distal digits of the right foot. Patient tolerated the procedure and anesthesia well and was transferred to the PACU with vital signs stable and vascular status intact. Following a period of postoperative monitoring she will be discharged home. Denied pain medications, she is on chronic pain management and already has narcotics prescribed to her and she states that these are adequate. She is to remain strict nonweightbearing to the right lower extremity. Advised an 81 mg aspirin once daily starting the morning after surgery on 05/25/2023 to help potentially reduce the risks of deep vein thrombosis. Patient was given at home care instructions, scheduled follow-up and my cell phone number to contact with any postoperative questions or concerns.
--- NOTE | 2023-05-24 17:19 | ANE.PACU2 ---
Inpatient post-anesthesia follow up: Vital signs: Temperature 97.1 F Pulse Rate 75 Respiratory Rate 18 Blood Pressure 127/72 Pulse Oximetry 99 Oxygen Delivery Me thod Room Air Oxygen Flow Rate Fraction of Inspir ed Oxygen Hydration adequate: Yes Nausea and vomiting: No Pain level: 3
== END 2023-05-24 15:06 | disposition home or self-care (01) ==
PROVIDERS: PCP Family Medicine; Visit Provider Podiatrist Foot & Ankle Surgery
PROC: (CPT 28485; principal; 2023-05-24 11:00)
DX: S92.351A Displaced fracture of fifth metatarsal bone, right foot, initial encounter for closed fracture (principal); X58.XXXA Exposure to other specified factors, initial encounter
CPT/HCPCS: 28485; 73620; 76000; C1713; J0690; J1200; J2405; J2704; J3010; J3490; J7030

== ENCOUNTER → 2023-06-06 12:52 | Outpatient (BNVA) | payer OTHER, SELFPAY | PROVIDERS: PCP Family Medicine; Visit Provider Podiatrist Foot & Ankle Surgery | DX: S92.351A Displaced fracture of fifth metatarsal bone, right foot, initial encounter for closed fracture (principal); X58.XXXA Exposure to other specified factors, initial encounter | CPT/HCPCS: 73630 ==

== ENCOUNTER → 2023-06-27 14:17 | Outpatient (BNVA) | payer OTHER, SELFPAY | PROVIDERS: PCP Family Medicine; Visit Provider Podiatrist Foot & Ankle Surgery | DX: S92.351A Displaced fracture of fifth metatarsal bone, right foot, initial encounter for closed fracture (principal); X58.XXXA Exposure to other specified factors, initial encounter; Z98.890 Other specified postprocedural states | CPT/HCPCS: 73630 ==

== ENCOUNTER → 2023-07-04 12:58 | Outpatient (BNVA) | payer OTHER, SELFPAY | PROVIDERS: PCP Family Medicine; Visit Provider Podiatrist Foot & Ankle Surgery | DX: S92.351A Displaced fracture of fifth metatarsal bone, right foot, initial encounter for closed fracture (principal); Z98.890 Other specified postprocedural states; X58.XXXA Exposure to other specified factors, initial encounter | CPT/HCPCS: 73630 ==

== ENCOUNTER → 2023-07-25 14:27 | Outpatient (BNVA) | payer OTHER, SELFPAY | PROVIDERS: PCP Family Medicine; Visit Provider Podiatrist Foot & Ankle Surgery | DX: Z98.890 Other specified postprocedural states; S92.351D Displaced fracture of fifth metatarsal bone, right foot, subsequent encounter for fracture with routine healing; X58.XXXD Exposure to other specified factors, subsequent encounter | CPT/HCPCS: 73630 ==

== ENCOUNTER → 2023-08-21 07:56 | Outpatient (BNVA) | payer OTHER, SELFPAY | PROVIDERS: PCP Family Medicine; Visit Provider Podiatrist Foot & Ankle Surgery | DX: Z98.890 Other specified postprocedural states (principal); S92.354D Nondisplaced fracture of fifth metatarsal bone, right foot, subsequent encounter for fracture with routine healing; X58.XXXD Exposure to other specified factors, subsequent encounter | CPT/HCPCS: 73630 ==

== ENCOUNTER 2023-10-04 07:45 | Outpatient (CLI) | payer OTHER, SELFPAY ==
--- NOTE | 2023-10-04 07:49 | MM_ITS ---
WS: [id number] VIEWS: MLO and CC views both breasts. 3D digital tomosynthesis is also included in this exam. Comparison made with prior exam of 04/26/2022. Findings: There was no sign of mass, architectural distortion or suspicious calcification in either breast. The re are scattered areas of fibroglandular density Impression: MM/[place] [id number] BI-RADS: 1-Negative FOLLOW-UP: 1 Year Follow-up This mammogram was also analyzed by the Computer Aided Detection System R2 Imag e Senior Accounting Associate.
== END 2023-10-04 07:46 | disposition home or self-care (01) ==
LOC: RAD 07:45
PROVIDERS: PCP Family Medicine; Visit Provider Family Medicine
DX: Z12.31 Encounter for screening mammogram for malignant neoplasm of breast (principal)
CPT/HCPCS: 77063; 77067

== ENCOUNTER → 2024-06-15 08:05 | Outpatient (BNVA) | payer MEDICARE, SELFPAY | PROVIDERS: PCP Family Medicine; Visit Provider Specialist | DX: Z96.653 Presence of artificial knee joint, bilateral (principal) | CPT/HCPCS: 73560; 73565; 99213 ==

== ENCOUNTER → 2024-07-06 10:36 | Outpatient (BNVA) | payer MEDICARE, SELFPAY | PROVIDERS: PCP Family Medicine; Visit Provider Specialist | DX: M25.551 Pain in right hip (principal); M16.11 Unilateral primary osteoarthritis, right hip; G62.9 Polyneuropathy, unspecified | CPT/HCPCS: 73523 ==

== ENCOUNTER 2024-08-12 06:45 | Outpatient (CLI) | payer MEDICARE, SELFPAY ==
--- NOTE | 2024-08-12 07:15 | MR_ITS ---
WS: [id number] MRI LUMBAR SPINE NONCONTRAST HISTORY: low back pain COMPARISON: None available. TECHNIQUE: Sagittal and axial multisequence imaging is submitted. Normal lumbar alignment with no compression fractures or marrow edema. Mild disc base narrowing and desiccation at L5-S1. Remaining disc spaces are well-maintained. Conus terminates normally at L1-2 disc level. L1-L2: Mild annular disc bulging with facet and ligamentum flavum hypertrophy. No stenosis. L2-L3: Mild annular disc bulging. Mild ligamentum flavum and facet arthritis. L3-L4: Mild annular disc bulging with a small central disc protrusion encroaching upon the ventral th ecal sac and subarticular recesses. Moderate ligamentum flavum and facet arthritis. Mild central and bilateral subarticular recess stenosis. Encroachment upon the traversing L4 nerve roots. L4-L5: Mild annular disc bulging with fluid in the facet joints. Moderate bilateral facet arthritis. Very small RIGHT foraminal disc protrusion. Mild bilateral subarticular recess encroachment upon the traversing L5 nerve roots. L5-S1: Mild disc bulging with a central disc protrusion. Mild facet arthritis. MR/MR lumbar spine wo con* [id number] IMPRESSION: 1. No high-grade central or foraminal stenosis. 2. L3-4: Mild central to bilateral subarticular recess encroachment by the dis c bulging. There is contact on the traversing L4 nerve roots in the subarticula r recesses. 3. L4-5: Mild bilateral subarticular recess encroachment upon the traversing L 5 nerve roots.
== END 2024-08-12 06:46 | disposition home or self-care (01) ==
LOC: RAD 06:46
PROVIDERS: PCP Family Medicine; Visit Provider Specialist
DX: M54.16 Radiculopathy, lumbar region (principal); M51.360 Other intervertebral disc degeneration, lumbar region with discogenic back pain only
CPT/HCPCS: 72148

== ENCOUNTER → 2024-09-07 10:48 | Outpatient (BNVA) | payer MEDICARE, SELFPAY | PROVIDERS: PCP Family Medicine; Visit Provider Specialist | DX: M16.11 Unilateral primary osteoarthritis, right hip (principal) | CPT/HCPCS: 99214 ==

== ENCOUNTER → 2024-09-24 12:51 | Outpatient (BNVA) | payer MEDICARE, SELFPAY | PROVIDERS: PCP Family Medicine; Visit Provider Orthopaedic Surgery | DX: M54.50 Low back pain, unspecified (principal); M25.551 Pain in right hip | CPT/HCPCS: 72110; 99203 ==

== ENCOUNTER 2024-10-02 08:47 | Outpatient (CLI) | payer MEDICARE, SELFPAY ==
--- NOTE | 2024-10-02 | ECG_ITS ---
[facility] Test Date: 2024-10-02 Pat Name: Nely Lau Department: Room: Gender: Female [place] [employer]anner: : 1965 Requested By: Alexandria Alejandro Order Number: [id number] Lisa NICHOLAS: Interpretive Statements Lung unchanged pre/post procedure; Intraprocedure shortess of breath; Symptoms resoled by discharge [id number]
[2024-10-02 09:10] VITALS: BMI 33.0
--- NOTE | 2024-10-02 09:28 | NMCV_ITS ---
NM devang perf SPECT r/s* [id number] Nely Lau Age: 59 Gender: F : 1965 Exam Date: 10/02/2024 09:28 Ordering Phys: Alexandria Casanova MD Technologist: ANNELIESE Yoon Exam Location: [facility] Indications: CP STRESS TEST Please see separate stress test report in [facility] for full findings IMAGE PROTOCOL Rest/Stress 1 Lexiscan Day Radiopharmaceutical Dose (mCi) Administration Site Administered by Rest: Tc-99m 10.8 IV ANNELIESE Yoon Sestamibi Stress:Tc-99m 33 IV ANNELIESE Dimas Sestamibi Rest: 10/02/2024 60 Discovery 630 Stress: 10/02/2024 30 Discovery 630 0.4mg Lexiscan. Images obtained in supine and prone position. SPECT RESULTS Technical Quality: Good Raw Data Analysis: Normal Image Corrections: No attenuation or motion correction applied Summed Stress Score: 0 Summed Rest Score: 0 Summed Difference Score: 0 PERFUSION FINDINGS SPECT images demonstrate homogeneous tracer distribution throughout the myocardium. FUNCTIONAL RESULTS (calculated via Gated SPECT) Stress Image LV EF (%): 71 Stress EDV (mL):97 TID: 1.38 Stress ESV (mL):28 FUNCTIONAL FINDINGS: There is normal left ventricular systolic function. TID ratio is elevated which could be secondary to left ventricle hypertrophy. IMPRESSIONS Myocardial perfusion imaging is normal. Poncho Loo MD (Electronically Signed) Final Date: 04 October 2024 20:38 S
[2024-10-02] MEDS: regadenoson 0.4 Mg/5 ml Syringe IVP (10:33)
[2024-10-02] MEDS: aminophylline 25 mg/mL SDV 20 mL IVP (10:44)
[2024-10-02 10:56] VITALS: BP 149/71; PULSE 76
== END 2024-10-02 08:48 | disposition home or self-care (01) ==
LOC: CDL 08:48
PROVIDERS: PCP Family Medicine; Visit Provider Family Medicine
DX: R07.9 Chest pain, unspecified (principal); R55 Syncope and collapse; R06.02 Shortness of breath
CPT/HCPCS: 36415; 78452; 93017; 96374; 96375; A9500; J0280; J2785

== ENCOUNTER 2024-10-20 09:00 | Outpatient (CLI) | payer MEDICARE, SELFPAY | END 2024-10-20 09:01 | disposition home or self-care (01) | LOC: RAD 09:04 | PROVIDERS: PCP Family Medicine; Visit Provider Emergency Medicine | DX: M19.071 Primary osteoarthritis, right ankle and foot (principal); M25.774 Osteophyte, right foot; M21.611 Bunion of right foot; M77.31 Calcaneal spur, right foot | CPT/HCPCS: 73630 ==

== ENCOUNTER → 2024-10-27 08:59 | Outpatient (BNVA) | payer MEDICARE, SELFPAY | PROVIDERS: PCP Family Medicine; Visit Provider Family Medicine | DX: Z01.818 Encounter for other preprocedural examination (principal) | CPT/HCPCS: 80053; 85025; 93005 ==

== ENCOUNTER 2024-10-28 09:32 | Outpatient (CLI) | payer MEDICARE, SELFPAY ==
[2024-10-28 10:22] LABS: Bilirubin Urine Negative (Negative); Blood Urine Negative (Negative); Glucose Urine UA Negative (Normal); Ketones Urine Negative (Negative); Leukocyte Esterase Urine 1+ (Negative); Nitrate Urine Negative (Negative); Protein Urine Negative (Negative); Specific Gravity, Urine 1.007 (1.005-1.030); Urine Appearance Clear (CLEAR); Urine Color Yellow (Yellow); Urobilinogen Urine 0.2 mg/dL (Negative); pH Urine 5.5 (5-7)
[2024-10-28 10:31] LABS: Bacteria Urine None Seen /hpf; RBC Urine 0-2 /hpf (0-2); Squamous Epithelial Cell Urine 0-5 /hpf (0-5)
[2024-10-28 10:39] LABS: Add Urine Culture? No
== END 2024-10-28 09:33 | disposition home or self-care (01) ==
LOC: LAB 09:33
PROVIDERS: Family Medicine; PCP Family Medicine; Visit Provider Specialist
DX: Z01.818 Encounter for other preprocedural examination (principal)
CPT/HCPCS: 81001

== ENCOUNTER 2024-11-12 13:44 | Observation (INO) | payer MEDICARE, SELFPAY ==
[2024-11-12] VITALS (17 sets, daily range): BP systolic 98–147; BP diastolic 48–95; PULSE 69–93; RESP 15–18; TEMP 36.4–36.9; O2SAT 93–100; BMI 33.9; BMI 35.9
[2024-11-12] MEDS: sodium chloride 0.9% 1,000 ML 30 ML IV (10:04)
[2024-11-12] MEDS: acetaminophen 1,000 MG/100 ML PIGGYBACK 400 MG IV ×2 (10:06→17:32)
[2024-11-12] MEDS: gabapentin 300 mg Capsule PO (10:06)
[2024-11-12] MEDS: CELEcoxib 200 mg Capsule 400 MG PO (10:07)
--- NOTE | 2024-11-12 10:54 | ANES.PREANE2 ---
Pre-Anesthetic Assessment Height/Weight: Height 6 ft Weight 250 lb Temp Pulse Resp BP Pulse Ox O2 Del Method 97.6 F 86 18 137/95 97 Room Air 11/12/24 10:18 11/12/24 10:18 11/12/24 10:18 11/12/24 10:18 11/12/24 10:18 11/12/24 10:19 Preop Diagnosis: Hip arthritis Operation Date: 11/12/24 11:40 Proposed Procedures p Total Hip Arthroplasty(Right) - Sherly Mcclendon MD Was Beta Cristo taken within 24 hours: N/A Was Clonidine taken within 24 hours: N/A Last intake: Intake Last Liquid Date 11/11/24 Last Liquid Time 22:30 Last Solid Date 11/11/24 Last Solid Time 22:30 Social No alcohol and No tobacco Exam alert, oriented x 3, clear to auscultation bilaterally and regular rate & rhythm Airway Submandibular: within normal limits Cervical ROM: within normal limits Mallampati: Class II Dentition: full Anesthetic Plan ASA status: 2 Anesthesia: General Other: Prior history of nausea with anesthesia, none in the last few anesthetic she has had NPO since yesterday History of hypertension on losartan Chronic oxycodone for back/shoulder pain Labs 10/27/2024 reviewed acceptable for procedure Plan for general anesthesia Medications/Allergies Home Medications Medication Instructions Recorded Confirmed Last Taken Type fexofenadine 180 mg tablet 180 mg PO DAILY PRN Allergy 11/26/19 11/12/24 08/29/22 History (Rosenda Allergy) Symptoms furosemide 40 mg tablet (Lasix) 40 mg PO .QD PRN Blood Pressure 11/26/19 11/11/24 11/04/24 History promethazine 25 mg tablet 25 mg PO .QD PRN Nausea 11/26/19 11/12/24 08/29/22 History meloxicam 15 mg tablet 15 mg PO DAILY #30 tabs 08/21/21 11/11/24 11/05/24 Rx cyclobenzaprine 10 mg tablet 10 mg PO QID muscle spasm #120 tabs 11/21/21 11/11/24 11/11/24 Rx potassium chloride 10 mEq 10 meq PO DAILY PRN Weight Gain 01/04/22 11/12/24 08/29/22 History tablet,extended release oxycodone 5 mg capsule 5 mg PO TID PRN Pain 10/20/24 11/11/24 11/11/24 History losartan 50 mg tablet 50 mg PO DAILY 10/27/24 11/11/24 11/06/24 History phentermine 37.5 mg tablet 37.5 mg PO DAILY 10/27/24 11/11/24 11/05/24 History simvastatin 20 mg tablet 20 mg PO DAILY 10/27/24 11/11/24 11/06/24 History Allergies Allergy/AdvReac Type Severity Reaction Status Date / Time baclofen AdvReac nausea/twitch Verified 10/27/24 09:20 in hands Current Medications Generic Name Dose Route Start Last Admin Trade Name Freq PRN Reason Stop Dose Admin Sodium Chloride 1,000 mls @ 30 mls/hr 11/12/24 09:45 11/12/24 10:04 Sodium Chloride 0.9% IV 11/13/24 09:44 30 mls/hr .Q24H FRANCIS Administration PFSH Anesthesia Medical History Acute right hip pain Encounter for long-term opiate analgesic use Opioid contract exists Chronic pain of scapula Cervical radiculopathy due to degenerative joint disease of spine Bilateral primary osteoarthritis of knee Surgical History History of colonoscopy with polypectomy Hx of carpal tunnel repair Right 11/2008 Hx of dilation and curettage 1988 Hx of hysterectomy Hx of shoulder surgery right side with Dr. Mcclendon 11/22/17 History of left knee replacement History of total right knee replacement 04/07/19 w/Dr Mcclendon Social History Smoking and tobacco/nicotine status: never used tobacco/nicotine Second hand smoke exposure: No Alcohol intake: never Substance/Drug Use: never Lives independently: Yes Data Anesthesia Cardiac Studies: Sestamibi Stress Test (Cardiology) 10/02/24
--- NOTE | 2024-11-12 11:00 | P.HPUD_ITS ---
Surgery/Procedure H&P Update DATE OF PROCEDURE: November 12, 2024 DATE H&P PERFORMED: 10/27/24 H&P UPDATE INFORMATION: I have reviewed H&P completed within last 30 days, I have examined patient prior to procedure, No changes to prior documentation and H&P is in [facility] EMR on date indicated PREOP DIAGNOSIS: Hip arthritis PLANNED PROCEDURE: Operation Date: 11/12/24 11:40 Proposed Procedures p Total Hip Arthroplasty(Right) - Sherly Mcclendon MD Related Problem List Diagnoses (1) Osteoarthritis of right hip: Qualifiers: Osteoarthritis type: primary Qualified Code(s): M16.11 - Unilateral primary osteoarthritis, right hip
[2024-11-12] MEDS: ceFAZolin 2,000 mg SDV 2000 MG IVP ×2 (11:50→20:08)
[2024-11-12] MEDS: tranexamic acid 1,000 mg/10mL SDV 1000 MG IV (12:26)
[2024-11-12] MEDS: BUPivacaine liposome 13.3 mg/mL SDV 20 mL 266 MG INJECTION (12:52)
[2024-11-12] MEDS: BUPivacaine 0.5% INJ 10 mL 20 ML INJECTION (12:52)
[2024-11-12] MEDS: ceFAZolin 1,000 mg SDV 1000 MG IRRIGATION (12:58)
[2024-11-12] MEDS: VANCOMYCIN ADD-Vantage 1,000 MG VIAL 1000 MG IRRIGATION (13:04)
--- NOTE | 2024-11-12 15:25 | XR_ITS ---
WS: [id number] Pelvis, AP view, 11/12/2024 Clinical Data: S/P Right [place] Comparison: Pelvis and both hips, 07/06/2024 Findings: The right hip arthroplasty is in good position. No periprosthetic fractures or loosening is seen. The left hip shows mild osteoarthritis. The adjacent pelvis and soft tissues are normal. XR/XR pelvis 1-2V* [id number] Impression: Stable right hip arthroplasty.
--- NOTE | 2024-11-12 15:45 | PM.OP ---
Operative Report Date of procedure: November 12, 2024 Pre-op diagnosis: Severe degenerative osteoarthritis right hip Post-op diagnosis: Severe degenerative osteoarthritis right hip Post-op findings: Severe degenerative osteoarthritis with large osteophytes. Procedure done: Right total hip arthroplasty Implants: The Jessica total hip system with a size 52 mm by E alpha code Trident II Tritanium acetabular shell with an MDM liner size 42 mm inner diameter by E alpha code.? A size 5 Accolade II 127? neck angle hip stem with a size 28 mm x +4 mm femoral head and a oriental orthodox MDM X3 insert size 28 mm x 42E Specimens removed/disposition: Femoral head, disposed of Pathology: None Surgeon: Sherly Mcclendon MD Service Center Manager: Smita Mondragon, nurse practitioner, who services were required for positioning, exposure, manipulation, and retraction. Additional manipulation was also provided by [facility] operating room technicians. Due to the patient's size, the surgical procedure required 3 surgical technicians, 1 to pass and 2 to manipulate the leg. Anesthesia: General (Intubated, ASA 2) Estimated blood loss (mL): 350 IV fluids (mL): 1,500 Urine output (mL): 600 Complications: None Findings: Severe degenerative osteoarthritis right hip with large osteophytes and very tight soft tissues Condition: stable Disposition: PACU (Then to floor for postoperative rehabilitation and pain management) Brief History: This 59-year-old woman presents today for right total hip arthroplasty. Patient has been seen and evaluated for her lumbar spine area. She has severe pain with range of motion of the hip. We discussed injection therapies along with total hip arthroplasty to address her hip issues. The patient wished to proceed with total hip arthroplasty. Risks and complications were discussed with her. Consents were signed and questions were answered. Procedure: Patient was brought to the operating theater.? She was transferred to the operating room table and subsequently administered a general anesthesia, intubated.? Following administration of adequate anesthesia, the patient was placed in full lateral position and held in position with a pegboard.? The patient's right lower extremity was then prepped and draped in usual fashion utilizing DuraPrep.? It was draped free.? Following prepping and draping, a surgical pause was performed.? At the time of surgical pause, we identified the site and side of surgery.? We also identified the patient and preoperative surgical markings.?The patient's operative leg was compared to the opposite leg as a length comparison.? Confirmation was made of equipment availability.? Additionally, the patient's preoperative IV antibiotic, Ancef 2 g, and TXA administration was confirmed as well.? X-rays were also reviewed. Following the surgical pause, an incision was made centering over the patient's greater trochanter continuing proximally and distally as necessary to allow access to the hip joint.? Dissection continued through skin and soft tissues using a scalpel, and hemostasis was obtained using electrocautery. The tensor fascia tom was identified and incised longitudinally.? Sciatic nerve was identified and protected throughout the surgical procedure.? A Charnley U retractor was placed after the tensor fascia tom had been incised longitudinally, and the sciatic nerve had been identified.? Muscles around the hip were quite tight, and the hip, secondary to musculature, was quite heavy as well. Retraction, manipulation, and exposure were difficult. For this reason, surgical procedure required 3 surgical assists in addition to the surgeon. The hip was internally rotated, and the piriformis muscle was identified and tagged. Piriformis muscle along with the remaining short external rotators were then incised from the posterior aspect of the hip joint.? These were retracted posteriorly.? The capsule was entered in a T-type fashion with the edges being tagged, and subsequently, the hip was dislocated. The labrum was excised with further excision accomplished once the femoral head was removed.? Following hip dislocation, a femoral neck osteotomy was accomplished in the appropriate position.??We then evaluated the acetabulum. The femur was retracted anteriorly.? Soft tissues were retracted, and the labrum was removed. A portion of the labrum was calcified and this was removed with a rongeur. We then began reaming.? Once the femoral head was removed, there was noted to be significant loss of cartilage over the head and cartilage loss within the acetabulum.? We reamed to a size 51 to allow for a size 52 acetabular shell. The size 52 acetabular shell was impacted into position without difficulty. It was noted to seat nicely.? The MDM liner was then impacted into position with care being taken to assure it seated appropriately. It was noted that the acetabulum matched the bony anatomy following osteophyte removal.? The cup was noted to seat nicely and had good fixation upon impact. Attention was directed to the proximal femur.? The proximal femur was lifted out of the wound.? A canal finder was passed after the box chisel.? The reamer was used to lateralize.? We then began broaching. We broached sequentially and had excellent fit and fill with the size 5 broach. Trial was initially accomplished with a +0 mm offset femoral head. It was felt that the patient would benefit from and more security, therefore, we increased to a +4 mm offset femoral head. The hip was again reduced and placed through range of motion. With this construct of a size 5 broach and a +4mm offset femoral head, we had the above-noted stabilities. Leg lengths were felt to be equal. With the final construct as noted, we had the above-noted stabilities and appropriate leg length. Therefore, trial components were removed after the hip was dislocated. The size 5 Accolade II 127? neck angle stem was impacted into position without difficulty and onto this was placed a +4 mm x 28 mm femoral head which had been assembled into the MDM insert size 42E.? With a +4 mm femoral head, we had the above-noted stability.? The stem was noted to seat nicely prior to placement of the femoral head.? The wound was copiously irrigated with 20 mL of Betadine and 500 mL of normal saline mixed together.? Subsequently, we suctioned this out and irrigated the wound copiously with lactated Ringer's.? At this time, with all components in appropriate position, the hip was reduced.? Following reduction of the prosthesis once again, we confirmed the stability of the hip.? Leg lengths were also felt to be satisfactory. Being satisfied with the prosthesis, attention was directed to closure.? Closure was accomplished with 0 Vicryl in the capsular tissues.? Piriformis was reattached with 0 Vicryl as well.? Tensor fascia tom was closed with 0 Vicryl in an interrupted fashion.? The subcutaneous tissues were closed with 2-0 Monocryl STRATAFIX.? Vancomycin powder and a Gelfoam thrombin mixture was placed into the wound as well.? The skin was closed with a running 3-0 Monocryl strata fix followed by Dermabond Prineo and OpSite. The patient was placed in an abduction pillow.? Patient was transferred off the operative bed and was brought to the recovery room in a satisfactory condition. Related Problem List Diagnoses (1) Osteoarthritis of right hip:
[2024-11-12] MEDS: oxyCODONE 5 mg IR Tab/Cap PO ×2 (16:34→20:35)
[2024-11-12] MEDS: iron polysaccharide complex 150 mg Capsule PO (17:30)
[2024-11-12] MEDS: sennosides-docusate Tablet 2 TAB PO (17:30)
[2024-11-12] MEDS: CELEcoxib 200 mg Capsule PO (17:30)
[2024-11-12] MEDS: mupirocin oint 22 gm 1 APPLIC NASAL (17:31)
[2024-11-12] MEDS: calcium carbonate 500 mg Chew Tablet 1000 MG PO (17:31)
[2024-11-12] MEDS: cyclobenzaprine 10 mg Tablet PO ×2 (17:31→20:08)
[2024-11-12] MEDS: chlorhexidine gluconate 0.12% Btl 473 mL 30 ML MUCOUS MEM ×2 (17:32→20:08)
[2024-11-12] MEDS: tranexamic acid 1,000 MG/100 ML PREMIX 600 MG IV (20:08)
[2024-11-13] VITALS (7 sets, daily range): BP systolic 120–131; BP diastolic 61–71; PULSE 82–86; RESP 14–18; TEMP 36.7; O2SAT 95–98
[2024-11-13] MEDS: acetaminophen 1,000 MG/100 ML PIGGYBACK 400 MG IV ×2 (00:05→08:23)
[2024-11-13] MEDS: ceFAZolin 2,000 mg SDV 2000 MG IVP ×2 (03:50→12:37)
[2024-11-13] MEDS: CELEcoxib 200 mg Capsule PO (03:50)
[2024-11-13 04:45] LABS: Basophils % 0.3 %; Eosinophils # 0.1 10^3/uL (0.0-0.8); Eosinophils % 0.5 %; Hematocrit 33.5 % (36-47); Lymphocytes # 1.5 10^3/uL (0.8-4.8); Lymphocytes % 11.5 %; Mean Corpuscular HGB Conc 31.9 g/dL (30-55); Mean Corpuscular Hemoglobin 29.2 pg (27-33); Mean Corpuscular Volume 91.5 fl (85-98); Mean Platelet Volume 10.3 fL (7.4-10.4); Monocytes % 7.6 %; Neutrophils # 10.22 10^3/uL (1.8-7.7); Neutrophils % 79.8 %; Nucleated Red Blood Cells % 0 %; Platelet Count 299 10^3/cmm (157-399); Red Blood Count 3.66 10^6/uL (3.85-5.65); Red Cell Distribution Width 13.2 % (12.1-15.1); White Blood Count 12.81 10^3/uL (3.29-11.43)
[2024-11-13] MEDS: atorvastatin 40 mg Tablet PO (08:19)
[2024-11-13] MEDS: multivitamin therapeutic Tablet 1 TAB PO (08:19)
[2024-11-13] MEDS: calcium carbonate 500 mg Chew Tablet 1000 MG PO (08:19)
[2024-11-13] MEDS: cholecalciferol (vitamin D3) 1,000 unit Tablet 1000 UNIT PO (08:19)
[2024-11-13] MEDS: sennosides-docusate Tablet 2 TAB PO (08:20)
[2024-11-13] MEDS: aspirin 325 mg EC Tablet PO (08:20)
[2024-11-13] MEDS: cyclobenzaprine 10 mg Tablet PO ×2 (08:20→12:34)
[2024-11-13] MEDS: oxyCODONE 5 mg IR Tab/Cap PO ×2 (08:20→12:34)
[2024-11-13] MEDS: losartan 50 mg Tablet PO (08:21)
[2024-11-13] MEDS: iron polysaccharide complex 150 mg Capsule PO (08:21)
[2024-11-13] MEDS: chlorhexidine gluconate 0.12% Btl 473 mL 30 ML MUCOUS MEM ×2 (08:25→12:37)
[2024-11-13] MEDS: mupirocin oint 22 gm 1 APPLIC NASAL (08:25)
--- NOTE | 2024-11-13 15:31 | PM.DCS ---
Discharge Providers Date of Admission: 11/12/24 13:44 Date of Discharge: November 13, 2024 Attending Provider at Admission: Sherly Mcclendon MD Attending Provider at Discharge: Sherly Mcclendon MD Consults: None Primary Care Provider: Alexandria Casanova MD Diagnoses at Discharge Discharge Diagnosis (1) Osteoarthritis of right hip: Status: Acute Qualifiers: Osteoarthritis type: primary Qualified Code(s): M16.11 - Unilateral primary osteoarthritis, right hip (2) S/P total right hip arthroplasty: Status: Acute Permanent problem details: Date of procedure: November 12, 2024 Diagnosis: Severe degenerative osteoarthritis right hip Procedure done: Right total hip arthroplasty Implants: The Jessica total hip system with a size 52 mm by E alpha code Trident II Tritanium acetabular shell with an MDM liner size 42 mm inner diameter by E alpha code. A size 5 Accolade II 127? neck angle hip stem with a size 28 mm x +4 mm femoral head and a anabaptism MDM X3 insert size 28 mm x 42E Reason for Visit Reason for Visit: M16.11 Brief History: This 59-year-old woman presents today for right total hip arthroplasty. Patient has been seen and evaluated for her lumbar spine area. She has severe pain with range of motion of the hip. We discussed injection therapies along with total hip arthroplasty to address her hip issues. The patient wished to proceed with total hip arthroplasty. Risks and complications were discussed with her. Consents were signed and questions were answered. Hospital Course Hospital Course This 59-year-old woman presented complaining of severe right hip pain. X-ray findings were consistent with severe degenerative osteoarthritis of the right hip. After discussion in the office including risks and complications, the patient wished to proceed with total hip arthroplasty. This was well-tolerated but was a difficult surgical procedure. Overnight, she had significant pain, but this was resolved by the morning and she was able to participate with physical therapy. The morning following surgery, the patient was independent and had ambulated multiple times with physical therapy and with family. She was felt safe for discharge to home. She was discharged home and will follow-up with me in the office. Physical Exam Const: COMMON NORMALS: no acute distress, average body habitus, patient oriented x3 and alert GENERAL APPEARANCE: cooperative and comfortable ORIENTATION/CONSCIOUSNESS: Yes awake HENMT: COMMON NORMALS: normocephalic and atraumatic HEAD & SCALP: normocephalic and atraumatic Eye: GENERAL EYE: appearance normal, both eyes and all related structures Chest: COMMONS NORMALS: normal inspection of the chest Resp: COMMON NORMALS: normal respiratory effort EFFORT & INSPECTION: Yes able to speak in complete sentences and Yes symmetric chest movement Extremity: RIGHT LOWER EXTREMITY: Yes hip joint (Dressing is dry and intact) Right hip: Yes inspection (No significant thigh swelling), Yes palpation (No significant tenderness), Yes ROM (Not evaluated) and Yes neurovascular exam (Intact distally) Neuro: COMMON NORMALS: patient oriented x3 SENSORIUM/ORIENTATION: Yes alert Psych: COMMON NORMALS: mental status grossly normal APPEARANCE: Yes grossly normal ATTITUDE: Yes calm and Yes engaged ATTENTION/CONCENTRATION: Yes attention grossly intact Skin: COMMON NORMALS: no rashes or lesions noted GENERAL SKIN EXAM: no rashes or lesions noted Urinary Catheter Management: Bruce: Cath Placed During This Visit: yes, but has since been removed by the nurse Reason for Continuing Indwelling Catheter: Decision to DC Catheter Urinary Catheter Date of Insertion: 11/12/24 Urinary Catheter Time of Insertion: 12:00 Date Urinary Catheter Removed: 11/13/24 Time Urinary Catheter Discontinued: 06:40 Discharge Data Studies Completed and Pending Completed Studies During Hospitalization Category Date Time Status XR pelvis 1-2V* [id number] Routine Exams 11/12/24 15:25 Completed Radiology Impressions Pelvis X-Ray 11/12/24 15:25 Impression: Stable right hip arthroplasty. Laboratory Results WBC 12.81 10^3/uL (3.29-11.43) H 11/13/24 03:49 RBC 3.66 10^6/uL (3.85-5.65) L 11/13/24 03:49 Hgb 10.70 g/dL (11.27-16.99) L 11/13/24 03:49 Hct 33.5 % (36-47) L 11/13/24 03:49 MCV 91.5 fl (85-98) 11/13/24 03:49 MCH 29.2 pg (27-33) 11/13/24 03:49 MCHC 31.9 g/dL (30-55) 11/13/24 03:49 RDW 13.2 % (12.1-15.1) 11/13/24 03:49 Plt Count 299 10^3/cmm (157-399) 11/13/24 03:49 MPV 10.3 fL (7.4-10.4) 11/13/24 03:49 Neut % (Auto) 79.8 % 11/13/24 03:49 Lymph % (Auto) 11.5 % 11/13/24 03:49 [place] % (Auto) 7.6 % 11/13/24 03:49 Eos % (Auto) 0.5 % 11/13/24 03:49 Baso % (Auto) 0.3 % 11/13/24 03:49 Neut # (Auto) 10.22 10^3/uL (1.8-7.7) H 11/13/24 03:49 Lymph # (Auto) 1.5 10^3/uL (0.8-4.8) 11/13/24 03:49 [place] # (Auto) 1.0 10^3/uL (0.2-0.9) H 11/13/24 03:49 Eos # (Auto) 0.1 10^3/uL (0.0-0.8) 11/13/24 03:49 Baso # (Auto) 0.0 10^3/uL (0.0-0.1) 11/13/24 03:49 Nucleated RBC % (auto) 0 % 11/13/24 03:49 Nucleated RBCs # 0.0 /100WBC 11/13/24 03:49 Vitals Last Vital Signs Temp 98.1 F 11/13/24 12:03 Pulse 85 11/13/24 12:03 Resp 16 11/13/24 12:34 BP 126/61 11/13/24 12:03 Pulse Ox 95 11/13/24 12:03 O2 Del Method Room Air 11/13/24 12:03 O2 Flow Rate 6 11/12/24 15:35 Discharge Plan Discharge Patient Disposition: Home Health Service Condition: Stable Prescriptions: New acetaminophen 500 mg Tablet 1,000 mg PO Q8H 15 Days Qty: 0 0RF aspirin 325 mg Tablet,Delayed Release (Dr/Ec) 325 mg PO DAILY 30 Days Qty: 0 0RF Continued meloxicam 15 mg tablet 15 mg PO DAILY Qty: 30 2RF Hold Instructions: Resume on 09/06/22. Rx Instructions: TAKE 1 TABLET BY MOUTH DAILY cyclobenzaprine 10 mg tablet 10 mg PO QID Qty: 120 1RF furosemide [Lasix] 40 mg tablet 40 mg PO .QD PRN (Reason: Blood Pressure) fexofenadine [Rosenda Allergy] 180 mg tablet 180 mg PO DAILY PRN (Reason: Allergy Symptoms) promethazine 25 mg tablet 25 mg PO .QD PRN (Reason: Nausea) potassium chloride 10 mEq tablet extended release 10 meq PO DAILY PRN (Reason: Weight Gain) Patient Comments: Only takes with lasix as needed oxycodone 5 mg capsule 5 mg PO TID PRN (Reason: Pain) losartan 50 mg tablet 50 mg PO DAILY phentermine 37.5 mg tablet 37.5 mg PO DAILY simvastatin 20 mg tablet 20 mg PO DAILY Discharge Orders: Discharge Order (Routine); Ordered 11/13/24 Ordered By: Sherly Mcclendon Referrals: [facility] [Outside] Sherly Mcclendon MD [Physician] - 11/25/24 10:45 am Discharge Diet: Advance as tolerated and Usual diet Discharge Activity: Increase activity as tolerated, Limit activity as instructed, Use walker/crutches as instructed and As per PT/OT instructions Patient Instructions: Acute Wound Care (DC), Arthritis (DC), Total Hip Replacement (DC), Opioid Safety, Post Anesthesia Care Activity Restrictions/Additional Instructions: Posterior hip precautions. You may ambulate weightbearing as tolerated under direction of physical therapy. Ice to hip. You may shower, but do not submerge your hip in water. Discharge Attestations Time Spent in Discharge Care*: greater than 30 min Specific Discharge Activities: educating patient, documenting/other paperwork and evaluating patient/reviewing data Quality Metrics Clinical Quality Measures [ No reported AMI, CVA or VTE this stay] Coding Level of Care Code Acute Code for g Fwd Diagnoses Primary osteoarthritis of right hip M16.11 Osteoarthritis type: primary S/P total right hip arthroplasty Z96.641
== END 2024-11-13 16:22 | disposition home health service (06) ==
LOC: MEDSURG 13:45
PROVIDERS: Admitting Provider Specialist; PCP Family Medicine; Visit Provider Specialist
PROC: (CPT 27130; principal; 2024-11-12 11:40)
DX: M16.11 Unilateral primary osteoarthritis, right hip (principal); Z79.899 Other long term (current) drug therapy; Z88.8 Allergy status to other drugs, medicaments and biological substances; Z96.653 Presence of artificial knee joint, bilateral
CPT/HCPCS: 27130; 36415; 51702; 72170; 85025; 97110; 97116; 97161; 97165; C1776; C9290; G0378; J0131; J0690; J1100; J1171; J1200; J2405; J2704; J3010; J3370; J3490; J7030

== ENCOUNTER → 2024-11-25 11:15 | Outpatient (BNVA) | payer MEDICARE, SELFPAY | PROVIDERS: PCP Family Medicine; Visit Provider Nurse Practitioner | DX: Z98.890 Other specified postprocedural states (principal); Z96.641 Presence of right artificial hip joint | CPT/HCPCS: 73502 ==

== ENCOUNTER → 2024-12-02 11:52 | Outpatient (BNVA) | payer MEDICARE, SELFPAY | PROVIDERS: PCP Family Medicine | DX: R50.9 Fever, unspecified (principal); J40 Bronchitis, not specified as acute or chronic | CPT/HCPCS: 87400 ==

== ENCOUNTER → 2025-01-06 10:26 | Outpatient (BNVA) | payer MEDICARE, SELFPAY | PROVIDERS: PCP Family Medicine; Visit Provider Nurse Practitioner | DX: Z96.641 Presence of right artificial hip joint (principal); M54.16 Radiculopathy, lumbar region | CPT/HCPCS: 73502; 99213 ==

== ENCOUNTER → 2025-01-19 14:09 | Outpatient (BNVA) | payer MEDICARE, SELFPAY | PROVIDERS: PCP Family Medicine; Visit Provider Orthopaedic Surgery | DX: M54.16 Radiculopathy, lumbar region (principal); M54.50 Low back pain, unspecified | CPT/HCPCS: 72110; 99213 ==

== ENCOUNTER 2025-02-01 14:50 | Outpatient (CLI) | payer MEDICARE, SELFPAY ==
--- NOTE | 2025-02-01 15:15 | MR_ITS ---
WS: [id number] MRI LUMBAR SPINE NONCONTRAST TECHNIQUE: Sagittal T1, T2 and STIR imaging. Axial T1 and T2 imaging. CLINICAL INFORMATION: low back pain COMPARISON: 08/12/2024 FINDINGS: Mild lumbar curve. No acute compression. No high-grade central canal stenosis. L1-L2: Mild annular bulging. Slight narrowing of the RIGHT subarticular recess. Mild facet arthropathy. Spinal canal and foramina are patent. L2-L3: Mild annular bulging. Slight narrowing of the RIGHT subarticular recess. Moderate facet arthropathy. Spinal canal and foramina are patent. L3-L4: Mild disc bulging with moderate central canal stenosis. Impingement traversing L4 nerve roots bilaterally LEFT greater than RIGHT similar to previous. Moderate facet arthropathy. Foramina are patent. L4-L5: Mild disc bulging. Impingement on the RIGHT subarticular recess and traversing RIGHT L5 nerve root. This is similar to previous. Moderate facet arthropathy. Foramen are patent. L5-S1: Disc desiccation. Disc osteophyte complex with endplate ridging. Foramen are patent. Moderate facet arthropathy. Visualized pelvic bony structures: Normal. Paravertebral soft tissues: Normal. MR/MR lumbar spine wo con* [id number] IMPRESSION: 1. Mild lumbar curve. No acute compression. 2. Disc bulging L3-4 with moderate central canal stenosis and impingement on t he traversing L4 nerve roots LEFT greater than RIGHT similar to previous. 3. Disc bulging L4-5 impinges the traversing RIGHT L5 nerve root in the subart icular recess. 4. Slight narrowing of the RIGHT L2-3 subarticular recess. 5. Moderate facet arthropathy L3-L5.
== END 2025-02-01 14:51 | disposition home or self-care (01) ==
LOC: RAD 14:53
PROVIDERS: PCP Family Medicine; Visit Provider Orthopaedic Surgery
DX: M54.16 Radiculopathy, lumbar region (principal); M43.8X6 Other specified deforming dorsopathies, lumbar region; M51.369 Other intervertebral disc degeneration, lumbar region without mention of lumbar back pain or lower extremity pain; M47.896 Other spondylosis, lumbar region; M51.379 Other intervertebral disc degeneration, lumbosacral region without mention of lumbar back pain or lower extremity pain; M25.78 Osteophyte, vertebrae; M47.897 Other spondylosis, lumbosacral region
CPT/HCPCS: 72148

== ENCOUNTER → 2025-02-16 13:01 | Outpatient (BNVA) | payer MEDICARE, SELFPAY | PROVIDERS: PCP Family Medicine; Visit Provider Orthopaedic Surgery | DX: M48.062 Spinal stenosis, lumbar region with neurogenic claudication (principal) | CPT/HCPCS: 99214 ==

== ENCOUNTER → 2025-02-22 08:26 | Outpatient (BNVA) | payer MEDICARE, SELFPAY | PROVIDERS: PCP Family Medicine; Visit Provider Nurse Practitioner Family | DX: M47.816 Spondylosis without myelopathy or radiculopathy, lumbar region (principal); M54.50 Low back pain, unspecified; G89.29 Other chronic pain | CPT/HCPCS: 99214 ==

== ENCOUNTER → 2025-02-26 10:08 | Outpatient (BNVA) | payer MEDICARE, SELFPAY | PROVIDERS: PCP Family Medicine; Visit Provider Nurse Practitioner Family | DX: M79.18 Myalgia, other site (principal); M54.50 Low back pain, unspecified; G89.29 Other chronic pain; M47.816 Spondylosis without myelopathy or radiculopathy, lumbar region | CPT/HCPCS: 20553; 99214; J1010; J3490 ==

== ENCOUNTER → 2025-03-11 08:07 | Outpatient (BNVA) | payer MEDICARE, SELFPAY | PROVIDERS: PCP Family Medicine; Visit Provider Nurse Practitioner Family | DX: M54.50 Low back pain, unspecified (principal); G89.29 Other chronic pain; M47.816 Spondylosis without myelopathy or radiculopathy, lumbar region; Z96.641 Presence of right artificial hip joint | CPT/HCPCS: 99214 ==

== ENCOUNTER → 2025-04-22 08:57 | Outpatient (BNVA) | payer MEDICARE, SELFPAY | PROVIDERS: PCP Family Medicine; Visit Provider Emergency Medicine | DX: I10 Essential (primary) hypertension (principal); R06.02 Shortness of breath | CPT/HCPCS: 71046 ==